=== PATIENT | male | born 2000 ===

== ENCOUNTER 2023-12-29 12:50 | Emergency (ER) | payer OTHER ==
[2023-12-29] MEDS ORDERED: 0.9% SODIUM CHLORIDE 1,000 ML BAG IV ONE ×2 (12:51)
[2023-12-29] MEDS ORDERED: CALCIUM CHLORIDE 100 MG/ML 10 ML SYRINGE IVP ONE (12:51)
[2023-12-29] MEDS ORDERED: EPINEPHrine 1:10,000 [1 MG/10 ML] SYRINGE IVP ONE ×2 (12:51)
[2023-12-29] MEDS ORDERED: DOPamine HCL/D5W 400 MG/250 ML IV BAG IV ONE (12:51)
[2023-12-29] MEDS ORDERED: SODIUM BICARBONATE [ADULT] 8.4% 50 MEQ/50 ML SYRINGE IVP ONE (12:51)
[2023-12-29] MEDS ORDERED: DEXTROSE 50%-WATER 25 GM/50 ML SYRINGE IVP ONE (12:51)
[2023-12-29] MEDS ORDERED: EPINEPHrine 1:10,000 [1 MG/10 ML] SYRINGE ONE (13:03)
== END 2023-12-29 16:22 ==
LOC: EMS 12:50
DX: I46.9 Cardiac arrest, cause unspecified (principal)
CPT/HCPCS: 99285; 92950; 93005; J1265; J3490 ×2; J7030; J0171